=== PATIENT | male | born 1965 | race Caucasian/White ===

== ENCOUNTER → 2020-09-30 | Emergency (ER) | payer OTHER ==
[~2020-09-30] VITALS: Ht 177.8 cm; Wt 108.9 kg
[~2020-09-30] MED LIST: GRALISE600 MG PO; KETO10TA2 PO; SERTRALINE HCL50 MG PO
== END | disposition home or self-care (01) ==
LOC: ER 13:15
DX: S20.212A Contusion of left front wall of thorax, initial encounter (principal); W18.2XXA Fall in (into) shower or empty bathtub, initial encounter; Y93.89 Activity, other specified; Y92.89 Other specified places as the place of occurrence of the external cause; Y99.8 Other external cause status